=== PATIENT | female | born 1985 | race Caucasian/White ===

== ENCOUNTER 2016-11-02 19:55 | Emergency (ER) | payer OTHER ==
[~2016-11-02] VITALS: Ht 157.5 cm; Wt 57.4 kg
[~2016-11-02 19:55] MED LIST: ENDOCET 5-3251 EACH PO; IBUPROFEN800 MG PO; MACROBID100 MG PO
[2016-11-02 20:42] LABS: ADD MIUA? YES; BILIRUBIN NEGATIVE; BLOOD NEGATIVE; COLOR YELLOW ((YELLOW)); GLUCOSE (STRIP) NEGATIVE; KETONES 5; LEUKOCYTES NEGATIVE; NITRITE NEGATIVE; PROTEIN (STRIP) NEGATIVE; SPECIFIC GRAVITY 1.024 (1.000-1.030); UROBILINOGEN 0.2 MG/DL (0.2-1.0)
[2016-11-02 20:44] LABS: BACTERIA NONE SEEN /HPF; EPITHELIAL CELLS RARE /HPF; MUCUS TRACE /LPF; RED BLOOD CELLS 0-5 /HPF (0-5); WHITE BLOOD CELLS 0-5 /HPF (0-5)
[2016-11-02 20:51] LABS: MCH 29.8 PG (29.0-34.0); MCHC 33.9 G/DL (30.0-36.0); MEAN PLAT.VOLUME 9.2 uM^3 (9.5-12.4); PLATELET COUNT 206 K/uL (156-360); RBC DIS.WIDTH-CV 12.6 % (11.8-14.6); RBC DIS.WIDTH-SD 40.5 % (39-53); RED BLOOD COUNT 4.09 M/uL (3.80-5.20); WHITE BLOOD COUNT 10.3 K/uL (4.1-10.2)
[2016-11-02 21:01] LABS: CHLORIDE 106 mEq/L (99-109); POTASSIUM 3.3 mEq/L (3.7-5.4); SODIUM 139 mEq/L (136-147)
[2016-11-02 21:03] LABS: GLUCOSE 126 mg/dL (70-99)
[2016-11-02 21:04] LABS: ANION GAP 11 MEQ/L (2-14)
[2016-11-02 21:05] LABS: TOTAL BILIRUBIN 0.3 mg/dL (0.0-1.0)
[2016-11-02 21:06] LABS: ALKALINE PHOSPHATASE 30 IU/L (3-129); GFR ESTIMATE (CALCULATED) > 59 mL/min/
[2016-11-02 21:08] LABS: UREA NITROGEN (BUN) 23 mg/dL (9-23)
[2016-11-02 21:10] LABS: LIPASE 20 U/L (1.0-51.0)
[2016-11-02 21:16] LABS: QUANTITATIVE HCG < 4.0 MIU/ML
[2016-11-02] MEDS ORDERED: OMEPRAZOLE40 M1 PO (22:15)
[2016-11-02] MEDS ORDERED: ZOFRAN ODT4 MG PO (22:15)
[2016-11-02] MEDS ORDERED: PERCOCET 5/31 TABLET PO (22:15)
[2016-11-02 22:39] VITALS: BP 104/70
== END 2016-11-02 22:41 | disposition home or self-care (01) ==
LOC: EME 19:55 → EXP 19:55
PROVIDERS: Physician Assistant
DX: R10.13 Epigastric pain (principal); Z88.0 Allergy status to penicillin
CPT/HCPCS: 74022; 76705; 80053; 81003; 83690; 84702; 85027; 99281; 99285; J2270; J2405; J7030